=== PATIENT | male | born 1985 | race Caucasian/White ===

== ENCOUNTER 2016-08-01 19:07 | Emergency (ER) | payer SELFPAY ==
[~2016-08-01] VITALS: Ht 167.6 cm; Wt 72.6 kg
[~2016-08-01 19:07] MED LIST: ALEVE220 MG PO; ATARAX25 MG PO; CLARITIN10 MG PO; CLINDAMYCIN HC300 MG PO; DONNATAL1 TAB PO; EES400 MG PO; FLONASE ALLERG9.9 ML NAS; GLUCOSAMINE & C1 CA2 PO; HYDROCODONE BIT1 T11 PO; KEFLEX500 MG PO; LIDEX0.05% T; MOTRIN600 MG PO; MOTRIN800 MG PO; NAPROSYN500 MG PO; NKHM; OFLOXACIN OTIC5 ML OPH; PERCOCET 325 MG1 TA2 PO; PERCOCET 325 MG1 TA7; PREDNISONE10 MG PO; PREDNISONE20 MG PO; ROBITUSSIN AC 110 ML PO; SILVADENE,SSD C50 GM PO; TOBRADEX 0.1%-0.5 ML OPH; ZITHROMAX Z PA250 MG PO; ZITHROMAX1 GM/PACKE PO; ZOVIRAX800 MG PO
[2016-08-01] MEDS ORDERED: Peridex 473 ML473 ML PO (20:33)
[2016-08-01] MEDS ORDERED: CLINDAMYCIN HC300 MG PO (20:33)
== END 2016-08-01 20:37 | disposition home or self-care (01) ==
LOC: ED 19:07
DX: K08.89 Other specified disorders of teeth and supporting structures (principal); Z88.1 Allergy status to other antibiotic agents; Z88.8 Allergy status to other drugs, medicaments and biological substances

== ENCOUNTER 2017-04-21 15:07 | Emergency (ER) | payer SELFPAY ==
[~2017-04-21] VITALS: Ht 167.6 cm; Wt 74.8 kg
[~2017-04-21 15:07] MED LIST changes: +Peridex 473 ML473 ML PO
== END 2017-04-21 16:05 | disposition home or self-care (01) ==
LOC: ED 15:07
DX: S05.51XA Penetrating wound with foreign body of right eyeball, initial encounter (principal); Z88.1 Allergy status to other antibiotic agents; X58.XXXA Exposure to other specified factors, initial encounter; Y93.89 Activity, other specified; Y92.89 Other specified places as the place of occurrence of the external cause; Y99.9 Unspecified external cause status

== ENCOUNTER → 2017-09-24 | Outpatient (CLI) | payer OTHER ==
[2017-09-24 18:40] LABS: BASO # 0.1 10*3/uL (0.0-0.1); BASO % 0.5 % (0.0-1.0); EOS # 0.1 10*3/uL (0.0-0.4); EOS % 0.7 % (1.0-4.0); HEMATOCRIT 39.2 % (42.0-52.0); HEMOGLOBIN 13.4 g/dl (14.0-18.0); LYMPH # 2.7 10*3/uL (1.3-4.4); LYMPH % 28.4 % (27.0-41.0); MEAN CELL VOLUME 91.8 fl (80.0-94.0); MEAN CORPUSCULAR HGB 31.4 pg (27.0-31.0); MEAN CORPUSCULAR HGB CONC 34.2 g/dl (33.0-37.0); MEAN PLATELET VOLUME 8.9 fl (9.6-12.3); MONO # 0.7 10*3/uL (0.1-1.0); MONO % 7.3 % (3.0-9.0); NEUT # 5.9 10*3/uL (2.3-7.9); NEUT % 62.9 % (47.0-73.0); PLATELET COUNT AUTOMATED 370 10*3/uL (130-400); RED BLOOD COUNT 4.27 10*6/uL (4.50-5.90); RED CELL DISTRI WIDTH 12.2 % (0-14.5); WHITE BLOOD COUNT 9.4 10*3/uL (4.8-10.8)
[2017-09-24 18:55] LABS: ALBUMIN 3.9 gm/dl (3.1-4.5); ALKALINE PHOSPHATASE 103 U/L (45-117); BUN 14 mg/dl (7-24); CHLORIDE 104 mmol/L (98-107); CREATININE 0.76 mg/dL (0.70-1.30); SGOT/AST 24 IU/L (3-35); SGPT/ALT 32 U/L (12-78); SODIUM 139 mmol/L (136-145); TOTAL PROTEIN 7.8 gm/dL (6.4-8.2)
[2017-09-25 08:10] LABS: HIV 1+2 AB + HIV1 P24 AG Non Reactive (Non Reactive)
[2017-09-25 10:03] LABS: HEPATITIS B SURFACE AG Negative (Negative); HEPATITIS C VIRUS ANTIBODY <0.1 s/co (0.0-0.9)
== END | disposition home or self-care (01) ==
LOC: LAB 18:08
PROVIDERS: Nurse Practitioner Primary Care
DX: R10.11 Right upper quadrant pain (principal); Z72.51 High risk heterosexual behavior; Z68.27 Body mass index [BMI] 27.0-27.9, adult; R19.7 Diarrhea, unspecified

== ENCOUNTER → 2017-09-27 | Outpatient (CLI) | payer OTHER | END | disposition home or self-care (01) | LOC: RAD 15:20 | DX: M25.561 Pain in right knee (principal); Z96.651 Presence of right artificial knee joint ==

== ENCOUNTER → 2017-10-08 | Outpatient (CLI) | payer OTHER | END | disposition home or self-care (01) | LOC: RAD 14:04 | DX: R10.84 Generalized abdominal pain (principal) ==

== ENCOUNTER 2017-11-06 13:54 | Emergency (ER) | payer OTHER ==
[~2017-11-06] VITALS: Ht 167.6 cm; Wt 77.1 kg
[2017-11-06] MEDS ORDERED: FLONASE ALLERG9.9 ML NAS (14:58)
[2017-11-06] MEDS ORDERED: ROBITUSSIN DM 105 ML PO (14:58)
[2017-11-06] MEDS ORDERED: PREDNISONE20 M1 PO (14:58)
== END 2017-11-06 15:05 | disposition home or self-care (01) ==
LOC: ED 13:54
DX: B34.9 Viral infection, unspecified (principal); Z88.1 Allergy status to other antibiotic agents; Z88.8 Allergy status to other drugs, medicaments and biological substances

== ENCOUNTER → 2017-11-29 | Outpatient (CLI) | payer OTHER ==
[~2017-11-29] MED LIST changes: +PREDNISONE20 M1 PO; +ROBITUSSIN DM 105 ML PO
[2017-11-29 11:16] LABS: BASO % 0.5 % (0.0-1.0); EOS # 0.1 10*3/uL (0.0-0.4); EOS % 0.9 % (1.0-4.0); HEMATOCRIT 42.9 % (42.0-52.0); HEMOGLOBIN 14.6 g/dl (14.0-18.0); LYMPH # 3.2 10*3/uL (1.3-4.4); LYMPH % 42.7 % (27.0-41.0); MEAN CELL VOLUME 93.1 fl (80.0-94.0); MEAN CORPUSCULAR HGB 31.7 pg (27.0-31.0); MEAN PLATELET VOLUME 9.4 fl (9.6-12.3); MONO # 0.5 10*3/uL (0.1-1.0); MONO % 6.3 % (3.0-9.0); NEUT # 3.7 10*3/uL (2.3-7.9); NEUT % 49.5 % (47.0-73.0); PLATELET COUNT AUTOMATED 384 10*3/uL (130-400); RED BLOOD COUNT 4.61 10*6/uL (4.50-5.90); RED CELL DISTRI WIDTH 12.4 % (0-14.5); WHITE BLOOD COUNT 7.5 10*3/uL (4.8-10.8)
[2017-11-29 11:30] LABS: BUN 13 mg/dl (7-24); CHLORIDE 107 mmol/L (98-107); CREATININE 0.84 mg/dL (0.70-1.30); POTASSIUM 4.1 mmol/L (3.5-5.1); SODIUM 140 mmol/L (136-145)
== END ==
LOC: LAB 09:55
PROVIDERS: Orthopaedic Surgery
DX: Z01.818 Encounter for other preprocedural examination (principal)

== ENCOUNTER → 2017-12-06 | Day surgery (SDC) | payer OTHER ==
[2017-11-29 10:24] VITALS: BP 121/92
[~2017-12-06] VITALS: Ht 167.6 cm; Wt 77.1 kg
[~2017-12-06] MED LIST changes: +DOXYCYCLINE100 M3 PO; +NORCO 5-325 TA1 EACH PO; +ZOFRAN4 MG PO
--- NOTE | ~2017-12-06 | O ---
[place], [place] OPERATIVE NOTE NAME: JEREMY SMITH UNIT #: [id number] ROOM: DOCTOR: CLARISSE CASANOVA DO BIRTHDATE: [birth year] DOS: PREOPERATIVE DIAGNOSIS: Right proximal tibia retained hardware. POSTOPERATIVE DIAGNOSIS: Right proximal tibia retained hardware. PROCEDURE: Right proximal tibia removal of a single screw of the retained hardware. SURGEON: Clarisse Casanova DO. TRUANT OFFICER: Joseph. ANESTHESIA: [place], Local MAC. INDICATIONS: The patient is a 32-year-old male with a history of a right tibial plateau fracture in 2012. The patient states that the screw at the proximal tibia has become quite prominent and at times it has even broken through the skin. The risks and benefits of the procedure were explained to the patient preoperatively. Preoperative labs and x-rays were obtained. PROCEDURE IN DETAIL: The right lower extremity was marked in the holding room. The patient was brought to the operative suite. He was placed supine on the operative table. A monitored anesthetic was performed by Anesthesia. The patient received antibiotics preoperatively. The tourniquet was placed on the right upper thigh. This was not inflated. The extremity was prepped and draped in the usual orthopedic manner. The prominent screw was palpated. The skin over the screw was injected with Marcaine 0.5% with epinephrine. A 1 cm incision was made over the screw head. The screw was removed using a screwdriver manually. The area was curetted and sent to lab for culture and sensitivity. The area was copiously irrigated with normal saline. Intraoperative x-ray was obtained, showing removal of the most prominent proximal screw. The area was closed with 2-0 Vicryl, followed by 4-0 Vicryl. The area was again injected with Marcaine 0.5% with epinephrine. Xeroform, 4 x 4s, and a dry sterile dressing was applied. The patient was taken to the recovery room in satisfactory condition. SPECIMENS: Culture and sensitivity, single screw was sent to lab. DRAINS: None. PACKING: None. COMPLICATIONS: None. ESTIMATED BLOOD LOSS: Less than 5 mL. [place], [place] OPERATIVE NOTE NAME: JEREMY SMITH UNIT #: [id number] ROOM: DOCTOR: CLARISSE CASANOVA DO BIRTHDATE: [birth year] CLARISSE CASANOVA DO CM:CONIORD:OPERATIVE NOTE [id number] CLARISSE CASANOVA DO 12/24/17 1243 interface
[2017-12-06 07:04] VITALS: BP 111/72
[2017-12-06 08:08] VITALS: BP 97/52
[2017-12-06 08:25] VITALS: BP 102/65
[2017-12-06 08:43] VITALS: BP 110/75
== END | disposition home or self-care (01) ==
LOC: SDC 11-29 10:15
DX: Z96.89 Presence of other specified functional implants (principal); Z98.890 Other specified postprocedural states; K21.9 Gastro-esophageal reflux disease without esophagitis

== ENCOUNTER 2018-01-15 04:15 | Emergency (ER) | payer OTHER ==
[~2018-01-15] VITALS: Ht 167.6 cm; Wt 74.8 kg
[~2018-01-15 04:15] MED LIST changes: -DOXYCYCLINE100 M3 PO
[2018-01-15 04:55] LABS: BASO % 0.6 % (0.0-1.0); EOS # 0.2 10*3/uL (0.0-0.4); EOS % 2.2 % (1.0-4.0); HEMATOCRIT 41.4 % (42.0-52.0); HEMOGLOBIN 13.9 g/dl (14.0-18.0); LYMPH # 3.2 10*3/uL (1.3-4.4); LYMPH % 47.2 % (27.0-41.0); MEAN CORPUSCULAR HGB 31.2 pg (27.0-31.0); MEAN CORPUSCULAR HGB CONC 33.6 g/dl (33.0-37.0); MEAN PLATELET VOLUME 9.2 fl (9.6-12.3); MONO # 0.8 10*3/uL (0.1-1.0); MONO % 11.5 % (3.0-9.0); NEUT # 2.6 10*3/uL (2.3-7.9); NEUT % 38.4 % (47.0-73.0); PLATELET COUNT AUTOMATED 318 10*3/uL (130-400); RED BLOOD COUNT 4.45 10*6/uL (4.50-5.90); RED CELL DISTRI WIDTH 12.5 % (0-14.5); WHITE BLOOD COUNT 6.7 10*3/uL (4.8-10.8)
[2018-01-15] MEDS ORDERED: DOXYCYCLINE100 M3 PO (05:11)
[2018-01-15 05:12] LABS: ALBUMIN 3.7 gm/dl (3.1-4.5); ALKALINE PHOSPHATASE 98 U/L (45-117); BUN 12 mg/dl (7-24); CHLORIDE 105 mmol/L (98-107); POTASSIUM 3.8 mmol/L (3.5-5.1); SGOT/AST 20 IU/L (3-35); SGPT/ALT 46 U/L (12-78); SODIUM 141 mmol/L (136-145); TOTAL PROTEIN 7.3 gm/dL (6.4-8.2)
[2018-02-14] MEDS ORDERED: DICYCLOMINE HCL20 MG PO (12:02)
[2018-02-19] MEDS ORDERED: ZOFRAN4 MG PO (10:02)
[2018-02-19] MEDS ORDERED: NORCO 5-325 TA1 EACH PO (10:03)
== END 2018-01-15 05:45 | disposition home or self-care (01) ==
LOC: ED 04:15
PROVIDERS: Student in an Organized Health Care Education/Training Program
DX: T81.89XA Other complications of procedures, not elsewhere classified, initial encounter (principal); Z79.899 Other long term (current) drug therapy; Z88.1 Allergy status to other antibiotic agents; Z88.8 Allergy status to other drugs, medicaments and biological substances; Z98.890 Other specified postprocedural states; Y92.9 Unspecified place or not applicable

== ENCOUNTER → 2018-02-11 | Outpatient (CLI) | payer OTHER ==
[~2018-02-11] MED LIST changes: +DICYCLOMINE HCL20 MG PO; +DOXYCYCLINE100 M3 PO
--- NOTE | ~2018-02-11 | EKG ---
[place], [place] ELECTROCARDIOGRAM REPORT NAME: JEREMY SMITH UNIT #: [id number] ROOM: DOCTOR: EPIPHANY DRAFT REPORT BIRTHDATE: [birth year] [facility] Test Date: 2018-02-11 Test Time: 15:36:08 Pat Name: JEREMY SMITH Department: Room: Gender: Emt P: Elba Rivera : 1985 Requested By: CLARISSE ARIZMENDI Order Number: [id number] Reading MD: Kit Rueda MD Measurements Intervals [place] Rate: 56 P: -8 ND: 147 QRS: 37 QRSD: 80 T: 36 QT: 384 QTc: 371 Interpretive Statements Sinus rhythm Electronically Signed On 02-11-2018 20:14:59 PDT by Kit Rueda MD CM:EKGRPT:ELECTROCARDIOGRAM REPORT [id number] CLARISSE RICHARDS DRAFT REPORT CLARISSE ARIZMENDI DO
[2018-02-11 15:59] LABS: BASO % 0.6 % (0.0-1.0); EOS # 0.1 10*3/uL (0.0-0.4); EOS % 1.4 % (1.0-4.0); HEMATOCRIT 43.3 % (42.0-52.0); HEMOGLOBIN 14.6 g/dl (14.0-18.0); LYMPH # 2.9 10*3/uL (1.3-4.4); LYMPH % 44.2 % (27.0-41.0); MEAN CELL VOLUME 94.1 fl (80.0-94.0); MEAN CORPUSCULAR HGB 31.7 pg (27.0-31.0); MEAN CORPUSCULAR HGB CONC 33.7 g/dl (33.0-37.0); MEAN PLATELET VOLUME 9.3 fl (9.6-12.3); MONO # 0.5 10*3/uL (0.1-1.0); NEUT % 45.6 % (47.0-73.0); PLATELET COUNT AUTOMATED 342 10*3/uL (130-400); RED CELL DISTRI WIDTH 12.5 % (0-14.5); WHITE BLOOD COUNT 6.7 10*3/uL (4.8-10.8)
[2018-02-11 16:22] LABS: BUN 14 mg/dl (7-24); CHLORIDE 104 mmol/L (98-107); CREATININE 0.88 mg/dL (0.70-1.30); POTASSIUM 4.7 mmol/L (3.5-5.1); SODIUM 139 mmol/L (136-145)
== END | disposition home or self-care (01) ==
LOC: LAB 14:50
PROVIDERS: Orthopaedic Surgery
DX: Z01.818 Encounter for other preprocedural examination (principal)

== ENCOUNTER 2018-06-03 20:55 | Emergency (ER) | payer OTHER ==
[~2018-06-03] VITALS: Ht 167.6 cm; Wt 74.8 kg
== END 2018-06-03 22:25 | disposition home or self-care (01) ==
LOC: ED 20:55
DX: S62.637A Displaced fracture of distal phalanx of left little finger, initial encounter for closed fracture (principal); Z88.1 Allergy status to other antibiotic agents; Z88.8 Allergy status to other drugs, medicaments and biological substances; Z79.899 Other long term (current) drug therapy; W22.8XXA Striking against or struck by other objects, initial encounter; Y93.89 Activity, other specified; Y92.69 Other specified industrial and construction area as the place of occurrence of the external cause; Y99.8 Other external cause status

== ENCOUNTER 2019-02-02 09:33 | Emergency (ER) | payer OTHER ==
[~2019-02-02] VITALS: Ht 167.6 cm; Wt 79.4 kg
== END 2019-02-02 11:25 | disposition home or self-care (01) ==
LOC: ED 09:33
DX: S60.222A Contusion of left hand, initial encounter (principal); S60.221A Contusion of right hand, initial encounter; Z88.1 Allergy status to other antibiotic agents; W22.8XXA Striking against or struck by other objects, initial encounter; Y93.89 Activity, other specified; Y92.89 Other specified places as the place of occurrence of the external cause; Y99.8 Other external cause status